=== PATIENT | male | born 1970 | race Caucasian/White ===

== ENCOUNTER 2019-10-30 21:48 | Emergency (ER) | payer BC ==
[2019-10-30] MEDS ORDERED: FLU Vacc QS2019-20(6MOS+)/PF 60 MCG/0.5 ML SYRINGE IM ONE (22:15)
[2019-10-30] MEDS ORDERED: Ketorolac 60 MG/2 ML SDV IM ONE (23:38)
--- NOTE | 2019-10-30 23:38 | EDM.PDOC ---
ED HPI GENERAL MEDICAL PROBLEM - General Chief Complaint: Abdominal Pain Stated Complaint: [facility] Time Seen by Provider: 10/30/19 21:50 Source of Information: Reports: Patient History Limitations: Reports: No Limitations - History of Present Illness INITIAL COMMENTS - FREE TEXT/NARRATIVE: TRIAGE NOTE -- Pt brought by [facility]. He states sneezed and got a sharp pain to LUQ. Pt states it felt like he "tore muscle" when it happened. Pt does have a abdominal hernia. Denies any nausea or vomiting. Pt is slightly diaphoretic [ End ] As above. Patient sneezed and felt may be a popping sensation in his lower anterior lateral rib area on the left. The pain was quite localized. No guerda abdominal pain no chest pain no other symptoms. No symptoms of acute medical illness leading up to this. No treatment or intervention prior to arrival other than supportive care by EMS. No readily identified risk factors. Left Upper Abdomen Pain Score (Numeric/FACES): 4 - Related Data Allergies Allergy/AdvReac Type Severity Reaction Status Date / Time olmesartan [From Benicar] Allergy Shortness Verified 10/30/19 21:55 of Breath Home Meds: Home Meds Albuterol Sulfate [Albuterol Sulfate Hfa] 2 puff INH Q4H PRN 10/30/19 [History] Budesonide/Formoterol Fumarate [Symbicort 160-4.5 Mcg Inhaler] 1 puff INH Q4H PRN 10/30/19 [History] amLODIPine [Norvasc] 10 mg PO DAILY 10/30/19 [History] hydroCHLOROthiazide [Hydrochlorothiazide] 25 mg PO DAILY 10/30/19 [History] Past Medical History HEENT History: Reports: Impaired Vision Cardiovascular History: Reports: Hypertension Respiratory History: Reports: Asthma Gastrointestinal History: Reports: GERD, Other (See Below) Other Gastrointestinal History: abdominal hernia, - Infectious Disease History Infectious Disease History: Reports: Chicken Pox, Measles, Mumps - Past Surgical History GI Surgical History: Reports: Appendectomy Social & Family History - Family History Family Medical History: Noncontributory - Tobacco Use Smoking Status *Q: Former Smoker Used Tobacco, but Quit: Yes Month/Year Tobacco Last Used: 2002 - Caffeine Use Caffeine Use: Reports: Soda - Recreational Drug Use Recreational Drug Use: No ED ROS GENERAL - Review of Systems Review Of Systems: Comprehensive ROS is negative, except as noted in HPI. ED EXAM, GENERAL - Physical Exam Exam: See Below Exam Limited By: No Limitations General Appearance: Alert, WD/WN Eye Exam: Bilateral Eye: EOMI, PERRL Ears: Normal External Exam Nose: Normal Inspection Throat/Mouth: Normal Inspection Head: Atraumatic Neck: Normal Inspection Respiratory/Chest: No Respiratory Distress, Lungs Clear, Normal Breath Sounds, Other (There is a small area of mild tenderness lower ribs on the left anterolaterally.) Cardiovascular: Regular Rate, Rhythm GI/Abdominal: Soft, Non-Tender, Other (There is an old well-healed midline scar lower abdomen extending from umbilicus to pubis. There is a small nontender reducible umbilical or periumbilical hernia.) Back Exam: Normal Inspection Extremities: Normal Inspection Neurological: Alert, Oriented Psychiatric: Normal Affect Skin Exam: Warm, Dry Course - Vital Signs Last Recorded V/S: Last Vital Signs Temp 36.9 C 10/30/19 21:51 Pulse 90 10/30/19 21:51 Resp 19 10/30/19 21:51 BP 137/60 10/30/19 21:51 Pulse Ox 96 10/30/19 21:51 - Orders/Labs/Meds Orders: Active Orders 24 hr Category Date Time Status Influenza Vaccine Charge [RC] .DISCHARGE Care 10/30/19 22:04 Active Ribs 2V w Chest Lt [CR] Stat Exams 10/30/19 22:10 Taken Ketorolac [Toradol] Med 10/30/19 23:38 Once 60 mg IM ONETIME ONE Pharmacy to Dose - InFluenza V [Pharmacy to Dose - Med 10/30/19 22:03 Pending InFluenza Vaccine] 1 each IM ONETIME ONE Medication Orders Influenza Virus Vaccine (Pharmacy To Dose - Influenza Vaccine) 1 each IM ONETIME ONE Stop: 10/30/19 22:04 Ketorolac Tromethamine (Toradol) 60 mg IM ONETIME ONE Stop: 10/30/19 23:39 Meds: Medications Generic Name Dose Route Start Last Admin Trade Name Freq PRN Reason Stop Dose Admin Influenza Virus Vaccine 1 each 10/30/19 22:03 Pharmacy To Dose - Influenza Vaccine IM 10/30/19 22:04 ONETIME ONE Ketorolac Tromethamine 60 mg 10/30/19 23:38 Toradol IM 10/30/19 23:39 ONETIME ONE Discontinued Medications Generic Name Dose Route Start Last Admin Trade Name Melissa PRN Reason Stop Dose Admin Influenza Virus Vaccine 60 mcg 10/30/19 22:15 Fluzone Quad Syringe IM 10/30/19 22:16 .ONCE ONE - Re-Assessments/Exams Free Text/Narrative Re-Assessment/Exam: 10/30/19 23:38 X-ray study of the left ribs was done. No obvious fracture is noted. Discussed fully with the patient. It is unlikely that any further intervention is required. He is getting an injection of Toradol for comfort. Return to ER for any further concerns. Especially respiratory symptoms guerda chest pain etc. Departure - Departure Time of Disposition: 23:40 Disposition: Home, Self-Care 01 Condition: Good Clinical Impression: Acute chest wall pain - Discharge Information Referrals: PCP,Unknown [Primary Care Provider] - Forms: ED Department Discharge Additional Instructions: On the basis of the history as well as the exam it is suggested that there was strain of the muscles connecting the ribs in the area of pain. No fractures noted on chest x-ray. If the radiologist should notice anything missed in the ER you will be notified. You have received an injection of Toradol in the emergency department. You may wish to moderate discomfort with medication such as ibuprofen but since you have had the adult is recommended not to take another dose of ibuprofen or similar medication until late tomorrow. Return to ER for any concern at all. Especially fever increased pain respiratory symptoms etc. Sepsis Event Note - Evaluation Sepsis Screening Result: No Definite Risk - Focused Exam Vital Signs: Vital Signs Temp Pulse Resp BP Pulse Ox 10/30/19 21:51 36.9 C 90 19 137/60 96 Date Exam was Performed: 10/30/19 Time Exam was Performed: 23:38 - My Orders Last 24 Hours: My Active Orders 10/30/19 22:03 Pharmacy to Dose - InFluenza V [Pharmacy to Dose - InFluenza Vaccine] 1 each IM ONETIME ONE 10/30/19 22:04 Influenza Vaccine Charge [RC] .DISCHARGE 10/30/19 22:10 Ribs 2V w Chest Lt [CR] Stat 10/30/19 23:38 Ketorolac [Toradol] 60 mg IM ONETIME ONE - Assessment/Plan Last 24 Hours: My Active Orders 10/30/19 22:03 Pharmacy to Dose - InFluenza V [Pharmacy to Dose - InFluenza Vaccine] 1 each IM ONETIME ONE 10/30/19 22:04 Influenza Vaccine Charge [RC] .DISCHARGE 10/30/19 22:10 Ribs 2V w Chest Lt [CR] Stat 10/30/19 23:38 Ketorolac [Toradol] 60 mg IM ONETIME ONE
--- NOTE | 2019-10-31 10:38 | CR ---
Chest and left ribs: Frontal view of the chest was obtained as well as three views of the left ribs. Comparison: No previous chest or rib exam. Heart size is normal. Mild tortuosity of the thoracic aorta is seen. Lungs are clear with no acute parenchymal change. No discrete rib fracture or other right-sided rib abnormality is appreciated. Impression: 1. Nothing acute is seen on frontal chest x-ray. 2. No discrete left-sided rib abnormality is appreciated. Diagnostic code #1 This report was dictated in [place] Standard Time
== END 2019-10-30 23:55 | disposition home or self-care (01) ==
LOC: JD.ED 21:48
DX: R07.89 Other chest pain (principal); Z23 Encounter for immunization; I10 Essential (primary) hypertension; J45.909 Unspecified asthma, uncomplicated; Z87.891 Personal history of nicotine dependence; Z90.49 Acquired absence of other specified parts of digestive tract; Z79.899 Other long term (current) drug therapy; Z88.8 Allergy status to other drugs, medicaments and biological substances
CPT/HCPCS: 71101; 90471; 90686; 96372; 99284; J1885; 99283; G0008